=== PATIENT | female | born 1985 | race Asian ===

== ENCOUNTER 2019-10-24 22:04 | Emergency (ER) | payer SELFPAY ==
[~2019-10-24] VITALS: Ht 154.9 cm; Wt 45.4 kg
[2019-10-24 22:48] VITALS: BP 113/59
[2019-10-24] MEDS ORDERED: IBUPROFEN 600 MG TAB PO ONE (22:50)
--- NOTE | 2019-10-25 01:00 | NUR ---
PATIENT CALLED TO BED , NO RESPONSE. PATIENT LEFT WITHOUT BEING SEEN BY DR. ALSTON. NO FURTHER CARE PROVIDED FOR PATIENT.
--- NOTE | 2019-10-25 01:05 | NUR ---
CALLED FOR SECOND TIME NO RESPONSE
--- NOTE | 2019-10-25 01:10 | NUR ---
CALLDE FOR THE THIRD TIME NO RESPONSE
== END 2019-10-25 01:00 | disposition left against medical advice (07) ==
LOC: MED 22:04
DX: R21 Rash and other nonspecific skin eruption (principal); Z53.21 Procedure and treatment not carried out due to patient leaving prior to being seen by health care provider